=== PATIENT | male | born 1960 | race Caucasian/White ===

== ENCOUNTER 2017-09-25 22:30 | Inpatient (IN) | payer MEDICAID ==
[2017-09-25] MEDS ORDERED: Sodium Chloride 0.9% 1,000 ML IV ONE (22:53)
--- NOTE | 2017-09-25 22:57 | ED Physician Chart ---
ED Chief Complaint/HPI - Patient Information Date Seen:: 09/25/17 Time Seen:: 22:45 Chief Complaint:: dysphagia, failure to thrive and cough History of Present Illness:: Patient sent from his shelter facility for dysphagia and nonproductive cough Allergies:: Allergies Allergy/AdvReac Type Severity Reaction Status Date / Time No Known Allergies Allergy Verified 09/25/17 22:31 Vitals:: Vital Signs - 8 hr 09/25/17 22:31 Temp 98.7 F HR 109 RR 18 BP 108/82 O2 Sat % 98 Historian:: EMS Review:: Nurse's Note Reviewed, Transfer documents Reviewed ED Review of Systems - Review of Systems General/Constitutional: No fever, No chills, No weight loss, Weakness, No diaphoresis, No edema, No loss of appetite Skin: No skin lesions, No rash, No bruising Head: No headache, No light-headedness Eyes: No loss of vision, No pain, No diplopia ENT: No earache, No nasal drainage, No sore throat, No tinnitus Neck: No neck pain, No swelling, No thyromegaly, No stiffness, No mass noted Cardio Vascular: No chest pain, No palpitations, No PND, No orthopnea, No edema Pulmonary: Cough, No sputum, No wheezing GI: No nausea, No vomiting, No diarrhea, No pain, No melena, No hematochezia, No constipation, No hematemesis G/U: No dysuria, No frequency, No hematuria Musculoskeletal: No bone or joint pain, No back pain, No muscle pain Endocrine: No polyuria, No polydipsia Psychiatric: No prior psych history, No depression, No anxiety, No suicidal ideation Hematopoietic: No bruising, No lymphadenopathy Allergic/Immuno: No urticaria, No angioedema Neurological: No syncope, No focal symptoms, No weakness, No paresthesia, No headache, No seizure, No dizziness, No confusion, No vertigo ED Past Medical History - Past Medical History Past Medical History: HTN, DM, PUD/GERD, Dementia, Other (cerebral palsy; quadriplegia; decubiti; cerebrovascular disease) Family History: Other (unavailable) Social History: Care Facility Surgical History: other (unavailable) Psychiatricy History: Dementia Medication: Reviewed Family Medical History - Family Member Mother History Unknown: Yes ED Physical Exam - Physical Examination General/Constitutional: Awake Other Gen/Cons comments:: Contractured; chronically ill appearing Head: Atraumatic Eyes: Lids, conjuctiva normal, PERRL Other Skin comments:: Multiple decubiti ENMT: External ears, nose nl Other ENMT comments:: 4 out of 4 peridontal disease Neck: No nuchal rigidity Respiratory: Nl effort/Exclusion, Clear to Auscultation Cardio Vascular: RRR, No murmur, gallop, rubs, NL S1 S2 GI: No tenderness/rebounding/guarding, No organomegaly, No hernia, Normal BS's, Nondistended Extremities: Normal digits & nails Neuro/Psych: No focal deficits ED Labs/Radiology/EKG Results - Lab Results Results: Laboratory Results - last 24 hr 09/25/17 23:20 WBC 8.2 RBC 3.90 L Hgb 13.1 Hct 38.4 L MCV 98.6 MCH 33.6 H MCHC Differential 34.1 RDW 12.9 Plt Count 235 MPV 7.5 Neutrophils % 62.6 Lymphocytes % 24.6 Monocytes % 7.5 Eosinophils % 4.5 Basophils % 0.8 Laboratory Results - last 24 hr 09/25/17 09/25/17 23:20 23:20 WBC 8.2 RBC 3.90 L Hgb 13.1 Hct 38.4 L MCV 98.6 MCH 33.6 H MCHC Differential 34.1 RDW 12.9 Plt Count 235 MPV 7.5 Neutrophils % 62.6 Lymphocytes % 24.6 Monocytes % 7.5 Eosinophils % 4.5 Basophils % 0.8 Sodium 136 Potassium 4.2 Chloride 105 Carbon Dioxide 24.1 Anion Gap 11.1 BUN 17 Creatinine 0.8 Est GFR ( Amer) > 60.0 Est GFR (Non-Af Amer) > 60.0 BUN/Creatinine Ratio 21.3 Glucose 182 H Calcium 9.2 - Radiology Results Results: Chest x-ray showed cardiomegaly but no infiltrate ED Septic Shock - . Is Septic Shock (SBP<90, OR Lactate>4 mmol\L) present?: No - <6hrs of presentation: Vital Signs: Vital Signs - 8 hr 09/25/17 22:31 Temp 98.7 F HR 109 RR 18 BP 108/82 O2 Sat % 98 ED Reassessment (Disposition) - Reassessment Reassessment Condition:: Unchanged - Diagnosis Diagnosis:: Cerebral palsy; multiple decubiti; contractures; viral bronchitis; diabetes; hyperglycemia - Patient Disposition Admitted to:: Med/Surg Spoke to:: Will Taylor Admitting Medical Physician:: Will Taylor Condition at Disposition:: Stable, Unchanged
[2017-09-25 23:32] LABS: % BASOPHILS 0.8 % (0.0-2.0); % EOSINOPHILS 4.5 % (0.0-5.0); % LYMPHOCYTES 24.6 % (20.0-50.0); % MONOCYTES 7.5 % (2.0-10.0); % NEUTROPHILS 62.6 % (40.0-80.0); BASOPHILE ABSOLUTE 0.1 Th/cumm (0-0.2); EOSINOPHILE ABSOLUTE 0.4 Th/cmm (0.1-0.4); HEMATOCRIT 38.4 % (41.0-60); HEMOGLOBIN 13.1 gm/dL (12-16); MEAN CELL VOLUME 98.6 fl (80-99); MEAN CORPUSCULAR HEMOGLOBIN 33.6 pg (26.0-30.0); MEAN CORPUSCULAR HGB CONC 34.1 pg (28.0-36.0); MEAN PLATELET VOLUME 7.5 fl; MONOCYTE ABSOLUTE 0.6 Th/cmm (0.3-1.0); NEUTROPHILE ABSOLUTE 5.1 Th/cmm (1.8-8.0); PLATELET COUNT 235 Th/cmm (150-400); RED CELL DISTRIBUTION WIDTH 12.9 % (11.5-20.0); WHITE BLOOD COUNT 8.2 Th/cmm (4.8-10.8)
[2017-09-25] MEDS ORDERED: Hydrocodone/APAP 5mg/325mg Tab PO PRN (23:46)
[2017-09-25] MEDS ORDERED: Magnesium Hydroxide (MOM) 30 mL UDC PO PRN (23:47)
[2017-09-25 23:51] LABS: ANION GAP 11.1 (7.0-16.0); BUN - UREA NITROGEN 17 mg/dL (7-25); CALCIUM SERUM 9.2 mg/dL (8.6-10.3); CARBON DIOXIDE 24.1 mEq/L (21.0-31.0); CHLORIDE 105 mEq/L (98-107); CREATININE - SERUM 0.8 mg/dL (0.7-1.3); GFR AFRICAN-AMERICAN > 60.0 ml/min (>90); GFR NON AFRICAN-AMERICAN > 60.0 ml/min; GLUCOSE 182 mg/dL (70-105); POTASSIUM SERUM 4.2 mEq/L (3.5-5.1); SODIUM SERUM 136 mEq/L (136-145)
[2017-09-26 04:59] VITALS: BP 132/75
[2017-09-26] MEDS: Pantoprazole 40 mg EC Tab PO SCH (06:43)
--- NOTE | 2017-09-26 08:13 | Diagnostic Imaging Report ---
CHEST X-RAY: AP view INDICATION: Cough COMPARISON: None FINDINGS: Exam is limited due to low lung volume and positioning. Increased bibasal lung markings are noted. No definite effusions. Heart size cannot be well assessed due to patient's low lung volumes. Cholecystectomy clips are noted. Gas-filled loops of bowel the upper abdomen are noted. Degenerative changes of the spine are noted. IMPRESSION: Limited exam due to body habitus and low lung volumes. Increased bibasal lung markings are noted which may be due to atelectasis, however, faint infiltrate cannot be excluded. Clinical correlation is recommended.
[2017-09-26] MEDS: Hydrocodone/APAP 5mg/325mg Tab PO SCH (08:39)
[2017-09-26] MEDS: Multivitamin w/ Minerals Tab PO SCH (08:39)
[2017-09-26] MEDS ORDERED: Non-Formulary Item 1 EA (Amino Acids/Protein Hydrolys [Pro-Stat Sugar Free Liquid] 30 ML) PO SCH (09:00)
[2017-09-26] MEDS ORDERED: Non-Formulary Item 1 EA (Apixaban [Eliquis] 2.5 MG) PO SCH (09:00)
[2017-09-26] MEDS ORDERED: Polyvinyl Alcohol Ophth Soln 15 mL Bottle EACH EYE SCH (09:00)
[2017-09-26 18:05] LABS: A1C % 5.7 % (4.0-6.0)
--- NOTE | 2017-09-27 01:12 | Progress Notes ---
DATE: 09/26/2017 SUBJECTIVE: The patient is confused, lethargic, and afebrile. OBJECTIVE: VITAL SIGNS: Basically stable except the tachycardia on and off. HEENT: Normocephalic, atraumatic. Pupils equal, round, and reactive to light and accommodation. CHEST: Symmetrical. LUNGS: Few wheezing appreciated with rhonchi at the lung base. CARDIAC: Tachycardia on and off. ABDOMEN: Benign, soft, nontender. EXTREMITIES: No clubbing, cyanosis, or edema bilaterally, 2+ equally. NEUROLOGICAL: Basically unremarkable. LABORATORY DATA: Reviewed, as seen from the computer. ASSESSMENT AND PLAN: 1. Tachycardia on and off, multifactorial. We will observe closely. 2. Dysphagia. Swallow evaluation and aspiration precaution to be emphasized. 3. Decubitus ulcer: Continue wound care and zinc sulfate with vitamin C for slow wound healing. 4. Early pneumonia: IVPB antibiotics and adjust antibiotic accordingly when the culture becomes available. 5. Out of control diabetes: Sliding scale insulin low dose. 6. Failure to thrive: Workup in progress. 7. Cerebral palsy. 8. Status post cerebrovascular accident. 9. Deep venous thrombosis prophylaxis. JOB# [id number]
--- NOTE | 2017-09-27 02:09 | History & Physical ---
ADMIT DATE: 09/26/2017 CHIEF COMPLAINT: Worsening confusion, dysphagia, worsening decubitus ulcer, cough, and some shortness of breath by nursing staff. HISTORY OF PRESENT ILLNESS: The patient is a 57-year-old male admitted from Emergency Room due to multiple complicated medical conditions. Apparently, the patient has become more confused for the past few days and with difficulty swallowing and failure to thrive. The patient does have history of cerebral palsy and is also status post CVA. He has cough and some shortness of breath due to bronchitis for the past few days. A chest x-ray revealed increased bibasilar lung markings due to either atelectasis or infiltrates. The patient does have multiple decubitus ulcers. He also has out of control diabetes with blood sugar 182. PAST MEDICAL HISTORY: Including cerebral palsy, pneumonia, failure to thrive, hypertension, diabetes, peptic ulcer disease, gastroesophageal reflux disease, dementia, quadriplegia, decubitus ulcer, and status post CVA. PAST SURGICAL HISTORY: This cannot be reliably obtained. MEDICATIONS: See medication reconciliation list. ALLERGIES: No known drug allergy. FAMILY HISTORY: Noncontributory. SOCIAL HISTORY: Cannot be reliably obtained. REVIEW OF SYSTEMS: Not feasible despite much effort made. PHYSICAL EXAMINATION: GENERAL: Well-developed female. No acute distress. SKIN: There are multiple areas of decubitus ulcers. HEENT: The patient has history of cerebral palsy. CHEST: Symmetrical. LUNGS: Few wheezing appreciated with rhonchi at lung base. HEART: Normal sinus rhythm, tachycardia on and off. ABDOMEN: Benign, soft, and nontender. EXTREMITIES: No clubbing, cyanosis or edema. ____. NEUROLOGICAL: Unremarkable. LABORATORY DATA: Labs reviewed, seen from the computer. ASSESSMENT AND PLAN: 1. Failure to thrive: Multifactorial. Workup in progress. 2. Dysphagia: Aspiration precaution re-emphasized and swallow evaluation will be conducted. 3. Probable early aspiration pneumonia: Blood culture and sputum culture ordered. Empiric antibiotics started, which will be adjusted accordingly. 4. Multiple decubitus ulcers: This is pretty much unavoidable due to the patient's medical conditions. 5. Diabetes: Sliding scale insulin low dose. 6. History of hypertension: The patient's ideal blood pressure today 110/70 ____. 7. Diabetes. 8. History of cerebral palsy. 9. Status post cerebrovascular accident. 10. Bronchitis with cough. 11. DVT prophylaxis. JOB# [id number]
[2017-09-27] MEDS: metroNIDAZOLE 500mg/NS 100mL 500 MG/100 ML BAG IV SCH ×3 (04:13→22:08)
[2017-09-27] MEDS: Pantoprazole 40 mg EC Tab PO SCH (06:41)
[2017-09-27] MEDS: Multivitamin w/ Minerals Tab PO SCH (11:33)
[2017-09-27] MEDS: Hydrocodone/APAP 5mg/325mg Tab PO SCH (11:33)
[2017-09-27] MEDS: Polyvinyl Alcohol Ophth Soln 15 mL Bottle EACH EYE SCH (11:37)
[2017-09-28] MEDS: metroNIDAZOLE 500mg/NS 100mL 500 MG/100 ML BAG IV SCH ×3 (05:03→21:04)
[2017-09-28] MEDS: Pantoprazole 40 mg EC Tab PO SCH (07:51)
[2017-09-28] MEDS: Multivitamin w/ Minerals Tab PO SCH (09:09)
[2017-09-28] MEDS: Polyvinyl Alcohol Ophth Soln 15 mL Bottle EACH EYE SCH (09:09)
[2017-09-28] MEDS: Hydrocodone/APAP 5mg/325mg Tab PO SCH (09:10)
[2017-09-28] MEDS: INSULIN ASPART SLIDING SCALE 100 UNITS/ML UNIT SUBQ SCH ×3 (12:10→22:03)
--- NOTE | 2017-09-28 21:18 | Progress Notes ---
DATE: 09/28/2017 SUBJECTIVE: The patient is lethargic, afebrile. OBJECTIVE: VITAL SIGNS: Basically stable. HEENT: Normocephalic, atraumatic. Pupils equal, round, react to light and accommodation. CHEST: Symmetrical. LUNGS: Few wheezing appreciated. HEART: Normal sinus rhythm. S1, S2. ABDOMEN: Benign, soft, nontender. EXTREMITIES: No clubbing, cyanosis, edema, bilaterally . NEUROLOGICAL: Unremarkable. LABORATORY DATA: Lab ordered. ASSESSMENT AND PLAN: 1. Altered level of consciousness due to metabolic encephalopathy and dementia. We will observe closely. 2. Tachycardia on and off, but improving. 3. Dysphagia: Follow swallow evaluation and recommendation. 4. Decubitus ulcer: Continue wound care and zinc sulfate and vitamin C to facilitate wound healing and reposition patient every 2 hours. 5. Early pneumonia: Continue IVPB antibiotics. 6. Out of diabetes improving. 7. Failure to thrive. 8. DVT prophylaxis. 9. Status post cerebrovascular accident. JOB# [id number]
[2017-09-29] MEDS: metroNIDAZOLE 500mg/NS 100mL 500 MG/100 ML BAG IV SCH ×3 (05:16→20:47)
[2017-09-29] MEDS: INSULIN ASPART SLIDING SCALE 100 UNITS/ML UNIT SUBQ SCH ×4 (07:00→20:47)
[2017-09-29] MEDS: Pantoprazole 40 mg EC Tab PO SCH (07:02)
[2017-09-29 07:32] LABS: % BASOPHILS 1.3 % (0.0-2.0); % EOSINOPHILS 5.1 % (0.0-5.0); % LYMPHOCYTES 26.4 % (20.0-50.0); % MONOCYTES 8.4 % (2.0-10.0); % NEUTROPHILS 58.8 % (40.0-80.0); BASOPHILE ABSOLUTE 0.1 Th/cumm (0-0.2); EOSINOPHILE ABSOLUTE 0.4 Th/cmm (0.1-0.4); HEMATOCRIT 35.6 % (41.0-60); HEMOGLOBIN 12.1 gm/dL (12-16); MEAN CORPUSCULAR HEMOGLOBIN 33.8 pg (26.0-30.0); MEAN CORPUSCULAR HGB CONC 34.2 pg (28.0-36.0); MEAN PLATELET VOLUME 7.6 fl; MONOCYTE ABSOLUTE 0.6 Th/cmm (0.3-1.0); NEUTROPHILE ABSOLUTE 4.4 Th/cmm (1.8-8.0); PLATELET COUNT 171 Th/cmm (150-400); RED BLOOD COUNT 3.59 Mil/cmm (4.30-5.70); WHITE BLOOD COUNT 7.5 Th/cmm (4.8-10.8)
[2017-09-29 07:56] LABS: ANION GAP 10.6 (7.0-16.0); BUN - UREA NITROGEN 20 mg/dL (7-25); CALCIUM SERUM 9.2 mg/dL (8.6-10.3); CARBON DIOXIDE 24.5 mEq/L (21.0-31.0); CHLORIDE 108 mEq/L (98-107); CREATININE - SERUM 0.6 mg/dL (0.7-1.3); GFR AFRICAN-AMERICAN > 60.0 ml/min (>90); GFR NON AFRICAN-AMERICAN > 60.0 ml/min; GLUCOSE 130 mg/dL (70-105); POTASSIUM SERUM 4.1 mEq/L (3.5-5.1); SODIUM SERUM 139 mEq/L (136-145)
[2017-09-29] MEDS: Multivitamin w/ Minerals Tab PO SCH (09:10)
[2017-09-29] MEDS: Hydrocodone/APAP 5mg/325mg Tab PO SCH (09:10)
[2017-09-29] MEDS: Polyvinyl Alcohol Ophth Soln 15 mL Bottle EACH EYE SCH (09:11)
--- NOTE | 2017-09-30 01:55 | Progress Notes ---
DATE: 09/29/2017 SUBJECTIVE: The patient feels lethargic, afebrile. OBJECTIVE: VITAL SIGNS: Basically stable. HEENT: Normocephalic, atraumatic. Pupils equal, round, react to light and accommodation. CHEST: Symmetrical. LUNGS: Few wheezing appreciated. CARDIAC: Normal sinus rhythm, S1 and S2. ABDOMEN: Benign, soft, nontender. EXTREMITIES: No clubbing, cyanosis, edema bilaterally, 2+. NEUROLOGIC: Unremarkable. LABORATORY DATA: Reviewed. ASSESSMENT AND PLAN: 1. Dysphagia: Swallow evaluation done. We will follow recommendation and aspiration precaution be exercised. 2. Decubitus ulcer: Continue wound care and every 2 hours. 3. Altered level of consciousness due to metabolic encephalopathy, dementia. We will observe closely. 4. Tachycardia on and off, but improving. 5. Early pneumonia: IVPB antibiotics. 6. Out of control diabetes: Sliding scale insulin low dose. 7. Failure to thrive. 8. DVT prophylaxis. 9. Status post cerebrovascular accident. JOB# [id number]
[2017-09-30] MEDS: metroNIDAZOLE 500mg/NS 100mL 500 MG/100 ML BAG IV SCH ×3 (05:14→20:20)
[2017-09-30] MEDS: Pantoprazole 40 mg EC Tab PO SCH (06:39)
[2017-09-30] MEDS: Polyvinyl Alcohol Ophth Soln 15 mL Bottle EACH EYE SCH (08:44)
[2017-09-30] MEDS: Hydrocodone/APAP 5mg/325mg Tab PO SCH (08:44)
[2017-09-30] MEDS: Multivitamin w/ Minerals Tab PO SCH (08:44)
[2017-09-30] MEDS: INSULIN ASPART SLIDING SCALE 100 UNITS/ML UNIT SUBQ SCH ×4 (08:46→20:20)
[2017-09-30] MEDS ORDERED: guaiFENesin 200 MG/10 ML UDC PO PRN (18:47)
--- NOTE | 2017-10-01 00:39 | Progress Notes ---
DATE: 09/30/2017 SUBJECTIVE: The patient is confused, lethargic, afebrile. OBJECTIVE: VITAL SIGNS: Basically stable. HEENT: Normocephalic, atraumatic. Pupils equal, round, react to light and accommodation. CHEST: Symmetrical. LUNGS: Few wheezing appreciated, but decreasing. CARDIAC: Normal sinus rhythm. S1, S2. ABDOMEN: Benign, soft, nontender. EXTREMITIES: No clubbing, cyanosis, edema, bilaterally 2+. . NEUROLOGIC: Unremarkable. LABORATORY DATA: Reviewed. ASSESSMENT AND PLAN: 1. Decubitus ulcer: Continue wound care, reposition every 2 hours and continue zinc sulfate and vitamin C to facilitate wound healing. 2. Dysphagia: Swallow evaluation done. Follow recommendation. 3. Altered level of consciousness due to metabolic encephalopathy and dementia. 4. Tachycardia on and off, but improving. 5. Out of control diabetes: Sliding scale insulin low dose. 6. Early pneumonia, improving. 7. Failure to thrive. 8. DVT prophylaxis. JOB# [id number]
[2017-10-01] MEDS: metroNIDAZOLE 500mg/NS 100mL 500 MG/100 ML BAG IV SCH ×3 (04:56→20:59)
[2017-10-01] MEDS: INSULIN ASPART SLIDING SCALE 100 UNITS/ML UNIT SUBQ SCH ×4 (06:49→20:55)
[2017-10-01] MEDS: Pantoprazole 40 mg EC Tab PO SCH (07:00)
[2017-10-01] MEDS: Multivitamin w/ Minerals Tab PO SCH (08:15)
[2017-10-01] MEDS: Hydrocodone/APAP 5mg/325mg Tab PO SCH (08:15)
[2017-10-01] MEDS: Polyvinyl Alcohol Ophth Soln 15 mL Bottle EACH EYE SCH (08:16)
[2017-10-02] MEDS: metroNIDAZOLE 500mg/NS 100mL 500 MG/100 ML BAG IV SCH ×2 (07:37→12:27)
[2017-10-02] MEDS: INSULIN ASPART SLIDING SCALE 100 UNITS/ML UNIT SUBQ SCH ×3 (08:31→17:30)
[2017-10-02] MEDS: Pantoprazole 40 mg EC Tab PO SCH (09:04)
[2017-10-02] MEDS: Polyvinyl Alcohol Ophth Soln 15 mL Bottle EACH EYE SCH (09:05)
[2017-10-02] MEDS: Hydrocodone/APAP 5mg/325mg Tab PO SCH (09:05)
[2017-10-02] MEDS: Multivitamin w/ Minerals Tab PO SCH (09:05)
--- NOTE | 2017-10-02 19:52 | Progress Notes ---
DATE: 10/01/2017 SUBJECTIVE: The patient is confused, lethargic, afebrile. OBJECTIVE: VITAL SIGNS: Stable. HEENT: Normocephalic, atraumatic. Pupils equal, round, react to light and accommodation. CHEST: Symmetrical. LUNGS: Few wheezing appreciated with rhonchi at the lung base. CARDIAC: Normal sinus rhythm. S1, S2. ABDOMEN: Benign, soft, nontender. EXTREMITIES: No clubbing, cyanosis, edema . NEUROLOGIC: Unremarkable. LABORATORY DATA: Reviewed. ASSESSMENT AND PLAN: 1. Dysphagia: The patient failed swallow evaluation and we will follow recommendation. 2. Altered level of consciousness due to metabolic encephalopathy and dementia. 3. Decubitus ulcers in multiple areas: Continue wound care and reposition every 2 hours. Continue zinc sulfate and vitamin C to facilitate wound healing. 4. Tachycardia on and off, but improving. 5. Uncontrolled diabetes, improving somewhat. 6. Early pneumonia: Continue IVPB antibiotics. 7. Failure to thrive. 8. Deep venous thrombosis prophylaxis. 9. Discharge planning discussed with case management. JOB# [id number]
--- NOTE | 2017-10-03 05:39 | Discharge Summary ---
DATE OF DISCHARGE: 10/02/2017 FINAL DIAGNOSES: 1. Dysphagia, stabilized. 2. Failure to thrive, improved. 3. Probable early aspiration pneumonia, treated with IVPB antibiotic. 4. Multiple decubitus ulcers, received wound care with improvement. 5. Diabetes, stabilized. 6. Hypertension. 7. History of cerebral palsy. HOSPITAL COURSE: The patient is a 57-year-old male admitted due to confusion, dysphagia, worsening decubitus ulcer, short of breath, etc. The patient had a swallow evaluation and recommendation was followed. The patient probably also had early aspiration pneumonia and he received empiric antibiotics with improvement. The patient also received wound care for multiple decubitus ulcers with improvement. The patient is eventually accepted back to shelter. DISCHARGE CONDITION: Stable. DISPOSITION: [facility]. DISCHARGE MEDICATION: Continue medication from here. DIET: Follow current diet recommended by speech therapist. ACTIVITY: Bed rest with physical therapy. FOLLOWUP: One week. JOB# [id number]
== END 2017-10-02 18:29 | DRG 137 ==
LOC: ER 22:30 → MSI 23:32
PROVIDERS: ADMIT Internal Medicine; ATTEND Internal Medicine
DX: J69.0 Pneumonitis due to inhalation of food and vomit (principal); G93.41 Metabolic encephalopathy; G80.9 Cerebral palsy, unspecified; F03.90 Unspecified dementia, unspecified severity, without behavioral disturbance, psychotic disturbance, mood disturbance, and anxiety; L89.90 Pressure ulcer of unspecified site, unspecified stage; E11.65 Type 2 diabetes mellitus with hyperglycemia; Z86.73 Personal history of transient ischemic attack (TIA), and cerebral infarction without residual deficits; R62.7 Adult failure to thrive; I10 Essential (primary) hypertension; K21.9 Gastro-esophageal reflux disease without esophagitis; J20.8 Acute bronchitis due to other specified organisms; K27.9 Peptic ulcer, site unspecified, unspecified as acute or chronic, without hemorrhage or perforation; R13.10 Dysphagia, unspecified; R00.0 Tachycardia, unspecified
CPT/HCPCS: 36415-UA; 71045-TC; 80048-TC; 82948-90; 83036-90; 85025-TC; 87070; 90799; J1815; J7030; J7040; X3401; Z7610